=== PATIENT | female | born 1950 | race Caucasian/White ===

== ENCOUNTER 2016-10-21 08:07 | Inpatient (IN) | payer OTHER, BC ==
[~2016-10-21] VITALS: Ht 152.4 cm; Wt 107.5 kg
[~2016-10-21 08:07] MED LIST: AMLODIPINE BESYL5 MG PO; ATORVASTATIN CA20 MG PO; BUPROPION XL300 MG PO; CYCLOBENZAPRINE5 MG PO; DIOVAN320 MG PO; FLONASE16 G1 BOTH NARES; GLUCOPHAGE1000 MG PO; HUMALOG100 UNIT/1 SC; HUMALOG100 UNIT/2 SC; LEVEMIR FL100 UNITS/ SC; LO-DOSE ASPIRIN81 M2 PO; RESTASIS 01 DROP/0.4 BOTH EYES; TOUJEO SOL300 UNIT/1 SC; TRAMADOL HCL50 MG PO; TYLENOL WITH C1 EACH PO; ZOCOR20 MG PO
[2016-10-21 09:35] VITALS: BP 133/81
[2016-10-21 09:53] LABS: POINT-OF-CARE METER ID UU13113694
[2016-10-21 16:33] LABS: POINT-OF-CARE METER ID UU13113675; POINT-OF-CARE USER ID ADMSLT55
[2016-10-21 18:21] VITALS: BP 152/72
[2016-10-21 19:48] VITALS: BP 129/75
[2016-10-21 21:48] LABS: POINT-OF-CARE METER ID UU14188577; POINT-OF-CARE USER ID 608261316
[2016-10-21 23:51] VITALS: BP 124/65
[2016-10-22 04:43] VITALS: BP 132/75
[2016-10-22 06:17] LABS: POINT-OF-CARE METER ID UU14188577
[2016-10-22 08:05] VITALS: BP 137/67
[2016-10-22 08:16] LABS: HEMATOCRIT 32.8 % (36.0-46.0); MCH 31.9 PG (29.0-34.0); MCV 88.6 FL (83-99); MEAN PLAT.VOLUME 10.8 uM^3 (9.5-12.4); PLATELET COUNT 198 K/uL (156-360); RBC DIS.WIDTH-CV 12.7 % (11.8-14.6); WHITE BLOOD COUNT 13.1 K/uL (4.1-10.2)
[2016-10-22 08:42] LABS: ANION GAP 12 MEQ/L (2-14); CHLORIDE 104 MEQ/L (99-109); GFR ESTIMATE (CALCULATED) 53 mL/min/; GLUCOSE 246 mg/dL (70-99); POTASSIUM 4.4 MEQ/L (3.7-5.4); SAMPLE HEMOLYSIS CHECK 0; SAMPLE ICTERIC CHECK 0; SAMPLE LIPEMIA CHECK 0; SODIUM 140 MEQ/L (136-147); UREA NITROGEN (BUN) 20 mg/dL (9-23)
[2016-10-22 08:50] LABS: Estimated Average Glucose 169 mg/dL (70-123); HEMOGLOBIN A1c (GLYCOHEMOGLOB) 7.5 % HGB (Below 5.7)
[2016-10-22 16:02] VITALS: BP 134/69
[2016-10-22 22:57] VITALS: BP 130/59
[2016-10-23] MEDS ORDERED: TIZANIDINE HCL4 MG PO (08:06)
[2016-10-23] MEDS ORDERED: ENDOCET 5-3251 EACH PO (08:06)
[2016-10-23 08:19] VITALS: BP 141/63
== END 2016-10-23 11:07 | disposition home or self-care (01) | DRG 460 ==
LOC: 3EAST 08:07 → 2SOUTH 08:07 → 3EAST 18:01
PROVIDERS: Hospitalist; Neurological Surgery
PROC: 0SG00AJ Fusion of Lumbar Vertebral Joint with Interbody Fusion Device, Posterior Approach, Anterior Column, Open Approach (ICD-10-PCS; principal; 2016-10-21)
DX: M48.06 Spinal stenosis, lumbar region (principal); M43.16 Spondylolisthesis, lumbar region; M47.896 Other spondylosis, lumbar region; G47.33 Obstructive sleep apnea (adult) (pediatric); M54.16 Radiculopathy, lumbar region; E11.65 Type 2 diabetes mellitus with hyperglycemia; I10 Essential (primary) hypertension; E78.5 Hyperlipidemia, unspecified; E78.00 Pure hypercholesterolemia, unspecified; E66.01 Morbid (severe) obesity due to excess calories; Z68.42 Body mass index [BMI] 45.0-49.9, adult; M17.12 Unilateral primary osteoarthritis, left knee; F32.9 Major depressive disorder, single episode, unspecified; Z79.4 Long term (current) use of insulin
CPT/HCPCS: 72020; 72100; 76000; 80048; 82948; 83036; 85027; 86900; 86901; 94799; J0131; J0330; J0690; J1170; J1580; J1815; J2250; J2405; J2710; J2930; J3010; J3370; J3480; S0020

== ENCOUNTER → 2017-08-24 | Outpatient (CLI) | payer OTHER, BC ==
[~2017-08-24] MED LIST changes: +ENDOCET 5-3251 EACH PO; +TIZANIDINE HCL4 MG PO
== END | disposition home or self-care (01) ==
LOC: EEG 08:56
DX: R42 Dizziness and giddiness (principal)
CPT/HCPCS: 95819